=== PATIENT | male | born 1990 | race Caucasian/White ===

== ENCOUNTER 2019-12-08 13:01 | Emergency (ER) | payer MEDICAID ==
[~2019-12-08] VITALS: Ht 182.9 cm; Wt 95.3 kg
[~2019-12-08 13:01] MED LIST: ACETAMINOPHEN-1 EAC1 PO; ATENOLOL 25 MG25 M1; CYCLOBENZAPRINE10 MG PO; FLEXERIL PO; IBUPROFEN 800800 M1 PO; IBUPROFEN 800800 MG PO; KLONOPIN0.5 MG PO; NAPROSYN500 MG PO; NEURONTIN 300300 M1 PO; PERCOCET 5-3251 EACH PO; PROZAC 20 MG20 M1; XANAX 1 MG TABLE1 MG PO; XANAX XR2 MG; XANAX1 MG PO
[2019-12-08] MEDS ORDERED: KEFLEX500 M1 PO (13:49)
[2019-12-08 14:00] VITALS: BP 142/78
== END 2019-12-08 14:00 | disposition home or self-care (01) ==
LOC: M.ERS 13:01
DX: S91.311A Laceration without foreign body, right foot, initial encounter (principal); Z88.0 Allergy status to penicillin; Z87.891 Personal history of nicotine dependence; W26.8XXA Contact with other sharp object(s), not elsewhere classified, initial encounter; Y93.89 Activity, other specified; Y92.89 Other specified places as the place of occurrence of the external cause; Y99.8 Other external cause status

== ENCOUNTER 2019-12-12 10:55 | Emergency (ER) | payer MEDICAID ==
[~2019-12-12] VITALS: Ht 182.9 cm; Wt 95.3 kg
[~2019-12-12 10:55] MED LIST changes: +KEFLEX500 M1 PO
[2019-12-12 11:19] VITALS: BP 116/66
== END 2019-12-12 11:20 | disposition home or self-care (01) ==
LOC: M.ERS 10:55
DX: S91.311A Laceration without foreign body, right foot, initial encounter (principal); Z87.891 Personal history of nicotine dependence; Z88.0 Allergy status to penicillin; X58.XXXA Exposure to other specified factors, initial encounter; Y93.89 Activity, other specified; Y92.89 Other specified places as the place of occurrence of the external cause; Y99.9 Unspecified external cause status

== ENCOUNTER 2020-09-23 14:37 | Emergency (ER) | payer MEDICAID ==
[~2020-09-23] VITALS: Ht 182.9 cm; Wt 97.5 kg
[2020-09-23 14:44] VITALS: BP 128/82
[2020-09-23] MEDS ORDERED: ALPRAZOLAM XR3 MG PO (14:46)
[2020-09-23] MEDS ORDERED: PROPRANOLOL 20M20 M1 PO (14:47)
[2020-09-23] MEDS ORDERED: PROZAC20 M1 PO (14:47)
[2020-09-23] MEDS ORDERED: HYDROCODON-ACE1 EAC7 PO (15:05)
[2020-09-23] MEDS ORDERED: CLEOCIN HCL300 MG PO (15:05)
[2020-09-24] MEDS ORDERED: ZOFRAN ODT4 MG DISSOLVE (15:45)
[2020-09-24] MEDS ORDERED: TORADOL 10 MG T10 MG PO (15:45)
== END 2020-09-23 15:20 | disposition home or self-care (01) ==
LOC: M.ERS 14:37
DX: K02.9 Dental caries, unspecified (principal); Z87.891 Personal history of nicotine dependence; Z88.0 Allergy status to penicillin

== ENCOUNTER 2020-09-24 15:30 | Emergency (ER) | payer MEDICAID ==
[~2020-09-24] VITALS: Ht 182.9 cm; Wt 97.5 kg
[~2020-09-24 15:30] MED LIST changes: +ALPRAZOLAM XR3 MG PO; +CLEOCIN HCL300 MG PO; +HYDROCODON-ACE1 EAC7 PO; +PROPRANOLOL 20M20 M1 PO; +PROZAC20 M1 PO
[2020-09-24] MEDS ORDERED: TORADOL 10 MG T10 MG PO (15:45)
[2020-09-24] MEDS ORDERED: ZOFRAN ODT4 MG DISSOLVE (15:45)
[2020-09-24 15:52] VITALS: BP 134/84
== END 2020-09-24 15:52 | disposition home or self-care (01) ==
LOC: M.ERS 15:30
DX: R11.2 Nausea with vomiting, unspecified (principal); T40.2X5A Adverse effect of other opioids, initial encounter; Y92.89 Other specified places as the place of occurrence of the external cause; F17.210 Nicotine dependence, cigarettes, uncomplicated; Z79.2 Long term (current) use of antibiotics